=== PATIENT | female | born 1980 | race Caucasian/White ===

== ENCOUNTER 2020-08-31 09:14 | Outpatient (REF) | payer MEDICAID, SELFPAY ==
[2020-08-31 14:40] LABS: HCT 39.8 % (36.0-46.0); HGB 13.2 g/dL (11.2-15.7); MCH 30.8 pg (27.0-33.0); MCHC 33.2 % (32.0-36.0); MCV 92.8 fL (80-95); MPV 11.6 fL (8.0-11.0); Platelet Count 246 10^3/uL (130-400); RBC 4.29 10^6/uL (3.93-5.22); RDW 12.1 % (11.7-14.6); RDW-SD 41.6 fL; WBC 5.79 10^3/uL (4.4-10.8)
[2020-08-31 14:56] LABS: ALT 22 U/L (14-59); AST 11 U/L (15-37); Albumin 3.9 g/dL (3.4-5.0); Alkaline Phosphatase 57 U/L (46-116); Anion Gap 7.1 mmol/L (3-11); BUN 19 mg/dL (7-18); Bilirubin, Total 0.4 mg/dL (0.2-1.0); CO2 25.9 mmol/L (21.0-32.0); CREATININE 0.9 mg/dL (0.55-1.02); Calcium 8.8 mg/dL (8.5-10.1); Calculated LDL 93 mg/dL (<100); Chloride 106 mmol/L (98-107); Cholesterol 171 mg/dL (<200); Glucose 93 mg/dL (74-106); HDL Cholesterol 60 mg/dL (40-60); Potassium 4.6 mmol/L (3.5-5.1); Sodium 139 mmol/L (136-145); TSH (W/Ref FT4) 1.96 uIU/mL (0.36-3.74); Total Protein 7.1 g/dL (6.4-8.2); Triglyceride 93 mg/dL (<150)
[2020-08-31 15:04] LABS: Epithelial Cells Few HPF (Negative); WBC Negative HPF (0-5)
[2020-08-31 15:05] LABS: Bacteria Few HPF (Negative); C & S Indicated? No; Crystals Negative HPF (Negative); Mucus Negative (Negative)
== END 2020-08-31 09:15 | disposition home or self-care (01) ==
LOC: NCHCN 09:14
PROVIDERS: PCP Nurse Practitioner Family; Visit Provider Nurse Practitioner Family
DX: Z13.29 Encounter for screening for other suspected endocrine disorder (principal); Z13.220 Encounter for screening for lipoid disorders; M54.5 Low back pain; R31.9 Hematuria, unspecified; Z13.228 Encounter for screening for other metabolic disorders
CPT/HCPCS: 80053; 80061; 85027; 81015; 84443

== ENCOUNTER 2020-12-14 18:23 | Outpatient (REF) | payer MEDICAID, SELFPAY ==
[2020-12-15 11:57] LABS: COVID-19 RT-PCR UVMMC Result Negative (Negative)
== END 2020-12-14 18:24 | disposition home or self-care (01) ==
LOC: NCHCN 18:23
PROVIDERS: PCP Nurse Practitioner Family; Visit Provider Nurse Practitioner Family
DX: J06.9 Acute upper respiratory infection, unspecified (principal); Z20.822 Contact with and (suspected) exposure to COVID-19
CPT/HCPCS: U0003